=== PATIENT | male | born 1950 | race Caucasian/White ===

== ENCOUNTER 2021-04-23 22:14 | Emergency (ER) | payer MEDICARE, OTHER ==
[2021-04-23] MEDS ORDERED: Ondansetron 4 MG/2 ML SDV IVPUSH ONE (23:42)
[2021-04-23] MEDS ORDERED: Sodium Chloride 0.9% 1,000 ML IV ONE (23:42)
[2021-04-23] MEDS ORDERED: Sodium Chloride 0.9% 10 ML Syringe FLUSH PRN (23:43)
--- NOTE | 2021-04-23 23:49 | EDM.PDOC ---
ED HPI GENERAL MEDICAL PROBLEM - General Chief Complaint: Cardiovascular Problem Stated Complaint: FAINTED Time Seen by Provider: 04/23/21 23:25 Source of Information: Reports: Patient, Family History Limitations: Reports: No Limitations - History of Present Illness INITIAL COMMENTS - FREE TEXT/NARRATIVE: Patient is a 70-year-old male who states he was at rest sitting outside when he became extremely nauseous and became diaphoretic and had a syncopal episode. Family member states he was very pale at the time and was unresponsive for up to 5 minutes. Patient afterwards felt well enough to walk to the bathroom moved his bowels which were not bloody or tarry. He then went and laid down to the ambulance arrived at which time he was asymptomatic. Patient has had previously similar symptoms in the past where he states he was unable to get out of bed for several days after he had a fainting spell. Patient has had no cardiac work-up and did not see anybody for the previous episode. Denies any chest pain or palpitations today or with the previous episode. He was not feeling short of breath or respiratory symptoms. Patient had not been having fever or chills today and had been doing no strenuous activities. He has not had any exertional symptoms today or in the past. Upon arrival to the emergency department patient did have a large amount of emesis approximately 900 cc which were not bloody or coffee ground in nature. Is no current symptoms. Onset: Today, Sudden Duration: Resolved Prior to Arrival Improves with: Reports: Rest Worsens with: Reports: None Associated Symptoms: Reports: No Other Symptoms Treatments PROPERTY OFFICER: Reports: EKG - Related Data Allergies Allergy/AdvReac Type Severity Reaction Status Date / Time simvastatin [From Zocor] Allergy Other Verified 04/23/21 22:33 Home Meds: Home Meds lisinopriL [Lisinopril] 20 mg PO DAILY 04/23/21 [History] Past Medical History HEENT History: Reports: Cataract Cardiovascular History: Reports: High Cholesterol, Hypertension Genitourinary History: Reports: BPH Musculoskeletal History: Reports: Arthritis - Infectious Disease History Infectious Disease History: Reports: Chicken Pox, Measles, Mumps - Past Surgical History Musculoskeletal Surgical History: Reports: Other (See Below) Other Musculoskeletal Surgeries/Procedures:: back surgery Social & Family History - Family History Family Medical History: No Pertinent Family History - Tobacco Use Tobacco Use Status *Q: Current Every Day Tobacco User Years of Tobacco use: 53 Packs/Tins Daily: 1 - Caffeine Use Caffeine Use: Reports: Coffee - Recreational Drug Use Recreational Drug Use: No ED ROS GENERAL - Review of Systems Review Of Systems: Comprehensive ROS is negative, except as noted in HPI. ED EXAM, GENERAL - Physical Exam Exam: See Below Exam Limited By: No Limitations General Appearance: Alert, No Apparent Distress Head: Atraumatic, Normocephalic Neck: Normal Inspection, Supple, Non-Tender Respiratory/Chest: No Respiratory Distress, Lungs Clear, Normal Breath Sounds Cardiovascular: Regular Rate, Rhythm, No Edema, No JVD, No Murmur GI/Abdominal: Normal Bowel Sounds, Soft, Non-Tender Back Exam: Normal Inspection Extremities: Normal Inspection, No Pedal Edema, Other (Patient has a small contusion/abrasion to his left elbow status post recent fall.) Neurological: Alert, Oriented, CN II-XII Intact, Normal Cognition Psychiatric: Normal Affect, Normal Mood Skin Exam: Warm, Dry, Normal Color Course - Vital Signs Last Recorded V/S: Last Vital Signs Temp 96.3 F L 04/23/21 22:25 Pulse 85 04/23/21 22:25 Resp 18 04/23/21 22:25 BP 121/78 04/23/21 22:25 Pulse Ox 98 04/23/21 22:25 After his initial large amount of emesis approximately 900 cc upon his arrival patient has been asymptomatic with 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 Patient was discussed with Dr. Reina who is a hospitalist at [facility] in [place] who has accepted the patient for cardiac monitoring and a possible stress test and further work-up and evaluation. Patient will be seen by hospitalist at [place]. I have given him a full aspirin here. Patient and family member are aware of the plan. - Orders/Labs/Meds Orders: Active Orders 24 hr Category Date Time Status EKG Documentation Completion [RC] ASDIRECTED Care 04/23/21 22:31 Active Peripheral IV Care [RC] . DIRECTED Care 04/23/21 23:43 Active Chest 1V Frontal [CR] Stat Exams 04/23/21 23:42 Taken Sodium Chloride 0.9% [Saline Flush] Med 04/23/21 23:43 Active 10 ml FLUSH ASDIRECTED PRN Peripheral IV Insertion Adult [OM.PC] Routine Oth 04/23/21 23:42 Ordered EKG 12 Lead [EK] Stat Ther 04/23/21 22:30 Ordered Medication Orders Sodium Chloride (Sodium Chloride 0.9% 10 Ml Syringe) 10 ml FLUSH ASDIRECTED PRN PRN Reason: Keep Vein Open Last Admin: 04/24/21 00:11 Dose: 10 ml Documented by: PEDRO Labs: Laboratory Tests 04/23/21 04/23/21 04/23/21 Range/Units 22:53 22:53 22:53 WBC 9.39 H (4.23-9.07) K/mm3 RBC 5.31 (4.63-6.08) M/mm3 Hgb 16.3 (13.7-17.5) gm/dl Hct 47.9 (40.1-51.0) % MCV 90.2 (79.0-92.2) fl MCH 30.7 (25.7-32.2) pg MCHC 34.0 (32.2-35.5) g/dl RDW Std Deviation 45.1 H (35.1-43.9) fL Plt Count 316 (163-337) K/mm3 MPV 9.0 L (9.4-12.3) fl Neut % (Auto) 75.2 H (34.0-67.9) % Lymph % (Auto) 15.0 L (21.8-53.1) % [place] % (Auto) 7.7 (5.3-12.2) % Eos % (Auto) 1.8 (0.8-7.0) Baso % (Auto) 0.2 (0.1-1.2) % Neut # (Auto) 7.06 H (1.78-5.38) K/mm3 Lymph # (Auto) 1.41 (1.32-3.57) K/mm3 [place] # (Auto) 0.72 (0.30-0.82) K/mm3 Eos # (Auto) 0.17 (0.04-0.54) K/mm3 Baso # (Auto) 0.02 (0.01-0.08) K/mm3 Sodium 142 (136-145) mEq/L Potassium 3.7 (3.5-5.1) mEq/L Chloride 104 (98-107) mEq/L Carbon Dioxide 29 (21-32) mEq/L Anion Gap 12.7 (5-15) BUN 16 (7-18) mg/dL Creatinine 1.5 H (0.7-1.3) mg/dL Est Cr Clr Drug Dosing 47.13 mL/min Estimated GFR (MDRD) 47 (>60) mL/min BUN/Creatinine Ratio 10.7 L (14-18) Glucose 131 H (70-99) mg/dL Calcium 9.0 (8.5-10.1) mg/dL Total Bilirubin 0.4 (0.2-1.0) mg/dL AST 14 L (15-37) U/L ALT 24 (16-63) U/L Alkaline Phosphatase 86 (46-116) U/L CK-MB (CK-2) 0.8 (0-3.6) ng/ml Troponin I < 0.017 (0.00-0.056) ng/mL Total Protein 7.1 (6.4-8.2) g/dl Albumin 3.8 (3.4-5.0) g/dl Globulin 3.3 gm/dL Albumin/Globulin Ratio 1.2 (1-2) Meds: Medications Generic Name Dose Route Start Last Admin Trade Name Freq PRN Reason Stop Dose Admin Sodium Chloride 10 ml 04/23/21 23:43 04/24/21 00:11 Sodium Chloride 0.9% 10 Ml Syringe FLUSH 10 ml ASDIRECTED PRN Administration Keep Vein Open Discontinued Medications Generic Name Dose Route Start Last Admin Trade Name Freq PRN Reason Stop Dose Admin Aspirin 324 mg 04/24/21 01:22 04/24/21 01:39 Aspirin 81 Mg Tab.Chew PO 04/24/21 01:23 324 mg ONETIME ONE Administration Sodium Chloride 1,000 mls @ 500 mls/hr 04/23/21 23:42 04/24/21 00:10 Normal Saline IV 04/24/21 01:41 500 mls/hr ONETIME ONE Administration Ondansetron HCl 4 mg 04/23/21 23:42 04/24/21 00:10 Ondansetron 4 Mg/2 Ml Sdv IVPUSH 04/23/21 23:43 4 mg ONETIME ONE Administration Departure - Departure Time of Disposition: 01:49 Disposition: DC/Tfer to Acute Hospital 02 Reason for Transfer *Q: Other (Syncopal episode probable arrhythmia.) Condition: Fair Clinical Impression: Syncopal episodes Referrals: PCP,Not In Area [Primary Care Provider] - Forms: ED Department Discharge Sepsis Event Note (ED) - Evaluation Sepsis Screening Result: No Definite Risk - Focused Exam Vital Signs: Vital Signs Temp Pulse Resp BP Pulse Ox 04/23/21 22:25 96.3 F L 85 18 121/78 98 - My Orders Last 24 Hours: My Active Orders 04/23/21 22:30 EKG 12 Lead [EK] Stat 04/23/21 22:31 EKG Documentation Completion [RC] ASDIRECTED 04/23/21 23:42 Chest 1V Frontal [CR] Stat Peripheral IV Insertion Adult [OM.PC] Routine 04/23/21 23:43 Peripheral IV Care [RC] . DIRECTED Sodium Chloride 0.9% [Saline Flush] 10 ml FLUSH ASDIRECTED PRN - Assessment/Plan Last 24 Hours: My Active Orders 04/23/21 22:30 EKG 12 Lead [EK] Stat 04/23/21 22:31 EKG Documentation Completion [RC] ASDIRECTED 04/23/21 23:42 Chest 1V Frontal [CR] Stat Peripheral IV Insertion Adult [OM.PC] Routine 04/23/21 23:43 Peripheral IV Care [RC] . DIRECTED Sodium Chloride 0.9% [Saline Flush] 10 ml FLUSH ASDIRECTED PRN
[2021-04-24] MEDS ORDERED: Aspirin 81 MG Tab.Chew PO ONE (01:22)
--- NOTE | 2021-04-24 12:13 | CR ---
Chest: Portable view of the chest was obtained. Comparison: No prior chest imaging is available. Heart size and mediastinum are normal. Linear density is noted within the right lung base compatible with scarring or atelectasis. Lungs otherwise are clear. Deformity which is compatible with old healed right clavicle fracture is noted. Small calcification is noted off the right shoulder compatible with previous calcific tendinitis. Mild scattered disc space narrowing and endplate spurring are noted within the spine. Impression: 1. Chronic bony findings as noted above. 2. Atelectasis or scarring within the right lung base. 3. Nothing acute is otherwise seen. Diagnostic code #2
== END 2021-04-24 02:08 ==
LOC: JD.ED 22:14
DX: R55 Syncope and collapse (principal); I10 Essential (primary) hypertension; Z72.0 Tobacco use; Z88.8 Allergy status to other drugs, medicaments and biological substances; Z79.899 Other long term (current) drug therapy
CPT/HCPCS: 36415; 71045; 80053; 82553; 84484; 85025; 93005; 96374; 99285; A9270; J2405; J7030